=== PATIENT | female | born 1985 | race Caucasian/White ===

== ENCOUNTER 2018-03-17 14:17 | Emergency (ER) | payer OTHER ==
[2018-03-17] MEDS: ONDANSETRON 4 MG ORAL DISINTEGRATING TAB (Q0162 PER 1MG) PO (14:42)
[2018-03-17] MEDS: CYCLOBENZAPRINE 10 MG TAB PO (16:06)
[2018-03-17] MEDS: IBUPROFEN 600 MG TAB PO (16:06)
== END 2018-03-17 16:13 | disposition home or self-care (01) ==
LOC: M ED 14:17
DX: S16.1XXA Strain of muscle, fascia and tendon at neck level, initial encounter (principal); M25.511 Pain in right shoulder; F07.81 Postconcussional syndrome; W10.8XXA Fall (on) (from) other stairs and steps, initial encounter; Y92.098 Other place in other non-institutional residence as the place of occurrence of the external cause; E28.2 Polycystic ovarian syndrome; Z88.1 Allergy status to other antibiotic agents
CPT/HCPCS: Q0162

== ENCOUNTER 2018-05-18 06:46 | Day surgery (SDC) | payer OTHER ==
[~2018-05-18] VITALS: Ht 152.4 cm; Wt 67.1 kg
[~2018-05-18 06:46] MED LIST: /ONDA4TA PO; ACETAMINOPHEN 325 MG TAB PO PRN; AMITRIPTYLINE PO; CYCL10TA PO; HYDROXYZINE; IBUP-1022 PO; LIDOCAINE 2% W/EPIN INJ 20ML **PRES FREE As Ordered ONE; MIRALAX PO; NORCOTAB PO; PHENERGAN PO; TETRACAINE 0.5% OPHTH SOLN 4ML As Ordered ONE; TOBRADEX OPHTH OINT 3.5 GM As Ordered ONE
[2018-05-18] MEDS ORDERED: LIDOCAINE 3.5 % 1ML OPHTH TOPICAL GEL OU ONE (07:00)
[2018-05-18 07:09] LABS: URINE PREG TEST NEGATIVE (NEGATIVE)
[2018-05-18] MEDS ORDERED: PROPOFOL 200 MG/20 ML VIAL As Ordered ONE (07:17)
[2018-05-18] MEDS ORDERED: MIDAZOLAM INJ 2 MG/2 ML VIAL (J2250) As Ordered ONE (07:17)
[2018-05-18] MEDS ORDERED: fentaNYL 100 MCG/2 ML INJECTION (J3010) As Ordered ONE (07:17)
[2018-05-18] MEDS ORDERED: KETAMINE HCL 200 MG/20 ML VIAL As Ordered ONE (07:23)
[2018-05-18] MEDS ORDERED: LR 1,000 ML IV ONE (07:45)
[2018-05-18] MEDS ORDERED: POVIDONE-IODINE 5% OPHTH PREP SOL 30ML As Ordered ONE (07:54)
[2018-05-18 08:25] VITALS: BP 132/72
[2018-05-18] MEDS ORDERED: ACETAMINOPHEN 325 MG TAB As Ordered ONE (09:14)
[2018-05-18] MEDS ORDERED: TRIMETHOBENZAMIDE 300 MG CAP PO PRN (09:30)
--- NOTE | 2018-05-18 14:41 | RO ---
DATE OF PROCEDURE: 05/18/2018 PREOPERATIVE DIAGNOSIS: Ptosis left upper lid. POSTOPERATIVE DIAGNOSIS: Ptosis left upper lid. PROCEDURE: Ptosis repair left upper lid. SURGEON: Galileo Thacker MD HIGH CLIMBER: None. ANESTHESIA: COMPLICATIONS: None. PROCEDURE IN DETAIL: Patient was brought to the operating room, laid in supine position. The eye was prepped and draped in a sterile fashion for ophthalmic surgery , following which the left upper lid was infiltrated using 2% lidocaine with 1:100,000 epinephrine. Electrocautery was then used to excise the skin which was premarked with a sterile marker over the left upper lid. After the skin was removed, deeper dissections were carried out to isolate the detached levator aponeurosis. This levator aponeurosis was found to be very weak, but was reattached using #6-0 nylon sutures. Position of the lid was noted to be excellent. The skin was then closed using #6-0 nylon sutures. Hemostasis was obtained as necessary using electrocautery. Right after the surgery, ice packs were applied, antibiotic ointment was placed, and the patient went to the recovery room in stable condition.
== END 2018-05-18 09:42 | disposition home or self-care (01) ==
LOC: M SDC 06:46
PROVIDERS: ATTEND Ophthalmology
DX: H02.402 Unspecified ptosis of left eyelid (principal); Z88.1 Allergy status to other antibiotic agents; E28.2 Polycystic ovarian syndrome; F41.9 Anxiety disorder, unspecified
CPT/HCPCS: 15823; 67904; 84703; 88302; J2250; J3010

== ENCOUNTER 2018-09-10 17:48 | Emergency (ER) | payer OTHER ==
[~2018-09-10] VITALS: Ht 152.4 cm; Wt 73.2 kg
[~2018-09-10 17:48] MED LIST changes: -/ONDA4TA PO; -ACETAMINOPHEN 325 MG TAB PO PRN; +HYDR-3715 PO; -LIDOCAINE 2% W/EPIN INJ 20ML **PRES FREE As Ordered ONE; -NORCOTAB PO; +ONDA-1 PO; -TETRACAINE 0.5% OPHTH SOLN 4ML As Ordered ONE; -TOBRADEX OPHTH OINT 3.5 GM As Ordered ONE
[2018-09-10] MEDS ORDERED: IBUPROFEN 600 MG TAB PO ONE (19:45)
[2018-09-10] MEDS ORDERED: ONDANSETRON 4MG/2ML VIAL (J2405) IV ONE (19:45)
[2018-09-10] MEDS ORDERED: NS 1,000 ML IV ONE (19:45)
[2018-09-10 20:30] LABS: BASO % 0.4 % (0.0-1.0); EOS # 0.1 10^3/uL (0.0-0.50); EOS % 1.2 % (0.0-3.0); HEMOGLOBIN 13.1 g/dl (12.0-15.5); LYMPH # 1.4 10^3/uL (1.5-4.5); LYMPH % 27.4 % (24.0-44.0); MEAN CORPUSCULAR HEMOGLOBIN 31.6 pg (27.0-33.0); MEAN CORPUSCULAR HGB CONC 33.6 g/dl (32.0-36.5); MONO # 0.5 10^3/uL (0.0-0.8); MONO % 8.7 % (0.0-5.0); NEUTROPHILS # 3.2 10^3/uL (1.8-7.7); NEUTROPHILS % 62.1 % (36.0-66.0); PLATELET COUNT, AUTOMATED 193 10^3/uL (150-450); RED BLOOD COUNT 4.15 10^6/uL (4.00-5.40); WHITE BLOOD COUNT 5.2 10^3/uL (4.0-10.0)
[2018-09-10 21:04] LABS: BLOOD UREA NITROGEN 4 MG/DL (7-18); CALCIUM LEVEL 8.2 MG/DL (8.5-10.1); CARBON DIOXIDE LEVEL 23 MEQ/L (21-32); CHLORIDE LEVEL 112 MEQ/L (98-107); CREATININE FOR GFR 0.57 MG/DL (0.55-1.30); GLOMERULAR FILTRATION RATE > 60.0 (>60); GLUCOSE, FASTING 98 MG/DL (70-100); POTASSIUM SERUM 4.7 MEQ/L (3.5-5.1); SODIUM LEVEL 142 MEQ/L (136-145)
[2018-09-10] MEDS ORDERED: ONDA4TAB6 PO (22:10)
[2018-09-11 00:12] VITALS: BP 118/73
== END 2018-09-11 00:30 | disposition home or self-care (01) ==
LOC: M ED 17:48
DX: H59.89 Other postprocedural complications and disorders of eye and adnexa, not elsewhere classified (principal); R11.2 Nausea with vomiting, unspecified; R51 Headache; R53.81 Other malaise; R50.9 Fever, unspecified; Z88.5 Allergy status to narcotic agent; Z88.1 Allergy status to other antibiotic agents
CPT/HCPCS: 36415; 80048; 81001; 85025; 96374; 99284; J2405

== ENCOUNTER 2018-11-05 23:22 | Emergency (ER) | payer OTHER, SELFPAY ==
[~2018-11-05] VITALS: Ht 152.4 cm; Wt 74.5 kg
[2018-11-05 23:22] VITALS: BP 130/82
[~2018-11-05 23:22] MED LIST changes: +ONDA4TAB6 PO
== END 2018-11-06 02:44 | disposition left against medical advice (07) ==
LOC: M ED 23:22
DX: Z53.29 Procedure and treatment not carried out because of patient's decision for other reasons (principal)

== ENCOUNTER → 2019-03-10 | Outpatient (REF) | payer OTHER | LOC: M SFHCLERA 18:54 | PROVIDERS: ATTEND Nurse Practitioner Family | DX: R50.9 Fever, unspecified (principal) ==

== ENCOUNTER → 2019-03-10 | Outpatient (CLI) | payer OTHER ==
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
== END ==
LOC: M LRY 18:06
PROVIDERS: ATTEND Nurse Practitioner Family
DX: R05 Cough (principal)

== ENCOUNTER 2019-10-04 12:42 | Emergency (ER) | payer OTHER ==
[~2019-10-04] VITALS: Ht 152.4 cm; Wt 71.8 kg
[~2019-10-04 12:42] MED LIST changes: +CYCL-707 PO; -CYCL10TA PO
[2019-10-04] MEDS ORDERED: ibuprofen 400 (12:48)
[2019-10-04] MEDS ORDERED: MIDOL (12:48)
[2019-10-04 13:40] LABS: BASO % 0.3 % (0.0-1.0); EOS # 0.1 10^3/uL (0.0-0.5); HEMATOCRIT 37.7 % (36.0-47.0); HEMOGLOBIN 13.1 g/dl (12.0-15.5); LYMPH # 2.4 10^3/uL (1.5-5.0); LYMPH % 38.3 % (24.0-44.0); MEAN CORPUSCULAR HGB CONC 34.7 g/dl (32.0-36.5); MEAN CORPUSCULAR VOLUME 89.1 fl (80.0-96.0); MONO # 0.5 10^3/uL (0.0-0.8); MONO % 8.1 % (0.0-5.0); NEUTROPHILS # 3.2 10^3/uL (1.5-8.5); NEUTROPHILS % 52.1 % (36.0-66.0); PLATELET COUNT, AUTOMATED 240 10^3/uL (150-450); RED BLOOD COUNT 4.23 10^6/uL (4.00-5.40); WHITE BLOOD COUNT 6.2 10^3/uL (4.0-10.0)
[2019-10-04 14:04] LABS: ALBUMIN 3.9 GM/DL (3.2-5.2); ALT/SGPT 49 U/L (12-78); BILIRUBIN,DIRECT < 0.1 MG/DL (0.0-0.2); BILIRUBIN,TOTAL 0.4 MG/DL (0.2-1.0); BLOOD UREA NITROGEN 8 MG/DL (7-18); CALCIUM LEVEL 9.1 MG/DL (8.5-10.1); CARBON DIOXIDE LEVEL 23 MEQ/L (21-32); CHLORIDE LEVEL 108 MEQ/L (98-107); CREATININE FOR GFR 0.56 MG/DL (0.55-1.30); GLOMERULAR FILTRATION RATE > 60.0 (>60); GLUCOSE, FASTING 100 MG/DL (70-100); LIPASE 98 U/L (73-393); POTASSIUM SERUM 3.8 MEQ/L (3.5-5.1); SODIUM LEVEL 139 MEQ/L (136-145); TOTAL PROTEIN 7.2 GM/DL (6.4-8.2)
[2019-10-04 14:15] LABS: HCG, SERUM QUALITATIVE NEGATIVE (NEGATIVE)
[2019-10-04 15:59] VITALS: BP 135/85
--- NOTE | 2019-10-04 16:39 | REP ---
Clinical: Abnormal uterine bleeding. Technique: Transabdominal pelvic ultrasound followed by transvaginal examination for better evaluation of the endometrium and adnexa with color Doppler evaluation of the ovaries. Findings: Bladder is partially collapsed. Heterogeneous anteverted uterus measures 9.3 x 5.1 x 5.5 cm with findings to suggest adenomyosis. The endometrial complex is thickened to 31 mm and includes 9x8x6 mm hyperechoic focus suggesting polyp along with hemorrhagic debris. The bilateral ovaries are normal in vascularity without torsion. Right ovary measures 3.5 x 2.4 x 2.8 cm (RI 0.56) and includes 1.4 cm presumed physiologic cyst / dominant follicle. Left ovary measures 3.2 x 1.9 x 2.9 cm (RI 0.70). No pelvic fluid or adnexal mass lesion. Impression: 1. Heterogeneous thickened endometrium suggesting hemorrhagic debris and suspected 9 mm polyp. 2. Heterogeneous uterus suggesting adenomyosis. Electronically Signed by Aden Horan MD 10/04/2019 04:30 P
[2019-10-04] MEDS ORDERED: FLAG500T PO (17:15)
[2019-10-04 17:52] LABS: CHLAMYDIA DNA AMPLIFICATION NEGATIVE (NEGATIVE); GC DNA AMPLIFICATION NEGATIVE (NEGATIVE)
[2019-10-05 10:09] LABS: CA 125 100.3 U/ML (<30.2)
== END 2019-10-04 17:26 | disposition home or self-care (01) ==
LOC: M ED 12:42
DX: N93.9 Abnormal uterine and vaginal bleeding, unspecified (principal); N85.00 Endometrial hyperplasia, unspecified

== ENCOUNTER 2019-10-07 15:20 | Emergency (ER) | payer OTHER ==
[~2019-10-07] VITALS: Ht 152.4 cm; Wt 69.7 kg
[~2019-10-07 15:20] MED LIST changes: +FLAG500T PO; +MIDOL; +ibuprofen 400
[2019-10-07] MEDS ORDERED: ALEV1TAB PO (15:27)
[2019-10-07 16:48] LABS: BASO % 0.6 % (0.0-1.0); EOS % 0.6 % (0.0-3.0); HEMATOCRIT 33.6 % (36.0-47.0); HEMOGLOBIN 11.8 g/dl (12.0-15.5); LYMPH # 2.1 10^3/uL (1.5-5.0); LYMPH % 43.3 % (24.0-44.0); MEAN CORPUSCULAR HEMOGLOBIN 31.1 pg (27.0-33.0); MEAN CORPUSCULAR HGB CONC 35.1 g/dl (32.0-36.5); MEAN CORPUSCULAR VOLUME 88.7 fl (80.0-96.0); MONO # 0.4 10^3/uL (0.0-0.8); MONO % 7.1 % (0.0-5.0); NEUTROPHILS # 2.4 10^3/uL (1.5-8.5); NEUTROPHILS % 48.4 % (36.0-66.0); PLATELET COUNT, AUTOMATED 235 10^3/uL (150-450); RED BLOOD COUNT 3.79 10^6/uL (4.00-5.40); WHITE BLOOD COUNT 4.9 10^3/uL (4.0-10.0)
[2019-10-07] MEDS ORDERED: DICL50TA2 PO (17:14)
[2019-10-07 17:44] VITALS: BP 126/85
== END 2019-10-07 17:58 | disposition home or self-care (01) ==
LOC: M ED 15:20
DX: N93.8 Other specified abnormal uterine and vaginal bleeding (principal); N94.6 Dysmenorrhea, unspecified; E28.2 Polycystic ovarian syndrome; K21.9 Gastro-esophageal reflux disease without esophagitis; F41.9 Anxiety disorder, unspecified; Z88.5 Allergy status to narcotic agent; Z88.8 Allergy status to other drugs, medicaments and biological substances

== ENCOUNTER 2019-11-17 07:25 | Day surgery (SDC) | payer OTHER ==
[~2019-11-17] VITALS: Ht 154.9 cm; Wt 68.0 kg
[~2019-11-17 07:25] MED LIST changes: +ALEV1TAB PO; +DICL50TA2 PO; +HYDR-3363 PO; +LIDOCAINE 2% 100MG/5ML SDV (FOR ANES.) As Ordered ONE; +MIDAZOLAM INJ 2MG/2ML VIAL (J2250 PER 1MG) As Ordered ONE; +ONDANSETRON 4MG/2ML VIAL As Ordered ONE; +SILVER NITRATE APPLICATOR As Ordered ONE; +dexameTHASONE 4 MG/ML 1ML VIAL (J1100 PER 1MG) As Ordered ONE; +fentaNYL 100 MCG/2 ML INJECTION (J3010) As Ordered ONE; +propofoL 200 MG/20 ML VIAL As Ordered ONE
[2019-11-17] MEDS ORDERED: ROCURONIUM BROMIDE 50 MG/5 ML VIAL As Ordered ONE (07:42)
[2019-11-17] MEDS ORDERED: METOCLOPRAMIDE INJ 10MG/2ML VIAL (J2765 PER 1) As Ordered ONE (08:04)
[2019-11-17] MEDS ORDERED: ACETAMINOPHEN 1000MG 100ML IV BTL (OFIRMEV) (J0131 PER 10MG) As Ordered ONE (08:04)
[2019-11-17] MEDS ORDERED: PERCOCET 5MG/325MG TAB As Ordered ONE ×2 (09:30→09:51)
[2019-11-17] MEDS ORDERED: KETOROLAC 60MG 2ML VIAL As Ordered ONE (09:43)
[2019-11-17] MEDS ORDERED: SUGAMMADEX SODIUM 500 MG/5 ML VIAL (BRIDION) As Ordered ONE (09:43)
[2020-01-06 20:33] LABS: HEMATOCRIT 35.6 % (36.0-47.0); HEMOGLOBIN 11.9 g/dl (12.0-15.5); MEAN CORPUSCULAR HEMOGLOBIN 30.7 pg (27.0-33.0); MEAN CORPUSCULAR HGB CONC 33.4 g/dl (32.0-36.5); MEAN CORPUSCULAR VOLUME 91.8 fl (80.0-96.0); PLATELET COUNT, AUTOMATED 219 10^3/uL (150-450); RED BLOOD COUNT 3.88 10^6/uL (4.00-5.40); WHITE BLOOD COUNT 4.3 10^3/uL (4.0-10.0)
--- NOTE | 2020-01-27 13:20 | RO ---
DATE OF PROCEDURE: November 17, 2019 PREOPERATIVE DIAGNOSES: Abnormal uterine bleeding. Possible endometrial mass/polyp. POSTOPERATIVE DIAGNOSES: Abnormal uterine bleeding. Possible endometrial mass/polyp. PROCEDURE PERFORMED: Hysteroscopy dilatation and curettage. MyoSure morcellation of endometrial mass/tissue. SURGEON: Stevie Patel DO TRACKMOBILE OPERATOR: None. ANESTHESIA TYPE: General via LMA. SPECIMENS SENT TO PATHOLOGY: Endometrial mass/polyp (morcellated). Endometrial curettings. ESTIMATED BLOOD LOSS: 20 mL. FLUIDS REPLACED: 1 liter lactated Ringer's. DRAINS: In and out urinary catheter. URINE OUTPUT: 300 mL. COMPLICATIONS: None. FLUID DEFICIT: Normal saline 500 mL. PREOPERATIVE ANTIBIOTICS: None indicated. INTRAOPERATIVE FINDINGS: Approximately a 9-10mm endometrial polypoid mass in the background of abundant endometrium. INDICATIONS: The patient is a 34-year-old who has been complaining of chronic abnormal uterine bleeding. A pelvic ultrasound revealed evidence of a possible endometrial polyp. The decision was made to proceed to the operating room for a hysteroscopy D&C and MyoSure morcellation of this endometrial mass. PROCEDURE: The patient was counseled and consented on the risks, benefits, indications, and alternatives of the procedure. Informed consent was obtained. She was taken to the operating room with an IV running and placed on the operating room table in the dorsal supine position. General anesthesia was administered and the airway secured without any difficulty. She was then placed in the high lithotomy position. She was prepped and draped in normal sterile fashion. A timeout was performed per protocol. The bladder was drained with a sterile in and out catheter. A sterile speculum was placed with good visualization of the cervix. The cervix was grasped with a single-toothed tenaculum and downward traction was applied. The cervix was then sequentially dilated with Kee dilators up to a #18. The hysteroscope was placed transcervically into the intrauterine cavity with the findings noted above. The MyoSure device was used to morcellate the abnormal endometrial tissue/mass that was visualized. Once this was removed, the cavity was cleared and free of any obstruction or mass. The MyoSure device was removed and the hysteroscope was removed. The curette was placed transcervically into the intrauterine cavity and any residual endometrial decidual tissue was curetted until there was gritty texture noted throughout the cavity, indicating no more decidualized tissue. The bleeding from the os after removal of the curette was minimal. The tenaculum was removed. The tenaculum sites were cauterized with silver nitrate. All instruments were removed from the vagina. Sponge, needle, and instrument counts were correct per protocol. The patient tolerated the entire procedure well. She was transferred to the PACU in good and stable condition. CONG
== END 2019-11-17 11:02 | disposition home or self-care (01) ==
LOC: M SDC 07:25
PROVIDERS: ATTEND Obstetrics & Gynecology
DX: N92.0 Excessive and frequent menstruation with regular cycle (principal); N84.0 Polyp of corpus uteri; E28.2 Polycystic ovarian syndrome; Z88.5 Allergy status to narcotic agent; Z88.1 Allergy status to other antibiotic agents; K58.8 Other irritable bowel syndrome; F41.9 Anxiety disorder, unspecified; Z79.899 Other long term (current) drug therapy
CPT/HCPCS: 58558; 85027; 86850; 86900; 86901; 88305; J0131; J1100; J1885; J2250; J2405; J2765; J3010

== ENCOUNTER 2020-03-09 18:55 | Emergency (ER) | payer OTHER ==
[~2020-03-09] VITALS: Ht 152.4 cm; Wt 75.6 kg
[~2020-03-09 18:55] MED LIST changes: -LIDOCAINE 2% 100MG/5ML SDV (FOR ANES.) As Ordered ONE; -MIDAZOLAM INJ 2MG/2ML VIAL (J2250 PER 1MG) As Ordered ONE; -ONDANSETRON 4MG/2ML VIAL As Ordered ONE; -SILVER NITRATE APPLICATOR As Ordered ONE; -dexameTHASONE 4 MG/ML 1ML VIAL (J1100 PER 1MG) As Ordered ONE; -fentaNYL 100 MCG/2 ML INJECTION (J3010) As Ordered ONE; -propofoL 200 MG/20 ML VIAL As Ordered ONE
[2020-03-09 18:56] VITALS: BP 127/96
== END 2020-03-09 21:08 | disposition left against medical advice (07) ==
LOC: M ED 18:55
DX: Z53.21 Procedure and treatment not carried out due to patient leaving prior to being seen by health care provider (principal)

== ENCOUNTER 2020-03-11 12:17 | Emergency (ER) | payer OTHER ==
[~2020-03-11] VITALS: Ht 152.4 cm; Wt 74.2 kg
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
[2020-03-11] MEDS ORDERED: ACETAMINOPHEN TAB 650MG DOSE (2X325MG) PO ONE (13:15)
[2020-03-11 13:35] LABS: BASO % 0.8 % (0.0-1.0); EOS # 0.1 10^3/uL (0.0-0.5); EOS % 1.2 % (0.0-3.0); HEMATOCRIT 45.1 % (36.0-47.0); HEMOGLOBIN 14.8 g/dl (12.0-15.5); LYMPH # 2.4 10^3/uL (1.5-5.0); LYMPH % 46.7 % (24.0-44.0); MEAN CORPUSCULAR HEMOGLOBIN 29.2 pg (27.0-33.0); MEAN CORPUSCULAR HGB CONC 32.8 g/dl (32.0-36.5); MEAN CORPUSCULAR VOLUME 89.1 fl (80.0-96.0); MONO # 0.4 10^3/uL (0.0-0.8); MONO % 8.1 % (0.0-5.0); NEUTROPHILS # 2.2 10^3/uL (1.5-8.5); PLATELET COUNT, AUTOMATED 237 10^3/uL (150-450); RED BLOOD COUNT 5.06 10^6/uL (4.00-5.40); WHITE BLOOD COUNT 5.2 10^3/uL (4.0-10.0)
[2020-03-11 14:04] LABS: BLOOD UREA NITROGEN 12 MG/DL (7-18); CALCIUM LEVEL 9.1 MG/DL (8.5-10.1); CARBON DIOXIDE LEVEL 29 MEQ/L (21-32); CHLORIDE LEVEL 107 MEQ/L (98-107); CREATININE FOR GFR 0.68 MG/DL (0.55-1.30); GLOMERULAR FILTRATION RATE > 60.0 (>60); GLUCOSE, FASTING 81 MG/DL (70-100); POTASSIUM SERUM 4.1 MEQ/L (3.5-5.1); SODIUM LEVEL 140 MEQ/L (136-145)
[2020-03-11] MEDS ORDERED: ISOVUE-370 76% 100ML VIAL As Ordered ONE (14:22)
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
[2020-03-11 15:48] VITALS: BP 134/84
== END 2020-03-11 15:49 | disposition home or self-care (01) ==
LOC: M ED 12:17
DX: Z04.1 Encounter for examination and observation following transport accident (principal); S20.211A Contusion of right front wall of thorax, initial encounter; S06.0X0A Concussion without loss of consciousness, initial encounter; V40.5XXA Car driver injured in collision with pedestrian or animal in traffic accident, initial encounter; Y92.410 Unspecified street and highway as the place of occurrence of the external cause; Y93.89 Activity, other specified; Y99.8 Other external cause status; M54.5 Low back pain; Z88.1 Allergy status to other antibiotic agents; Z88.5 Allergy status to narcotic agent
CPT/HCPCS: 70450; 70486; 71260; 72125; 72128; 72131; 74177; 80048; 84702; 85025; 99283; Q9967

== ENCOUNTER → 2020-05-05 | Outpatient (CLI) | payer SELFPAY | LOC: M LABSMTC 13:18 | PROVIDERS: ATTEND Pediatrics | DX: Z20.822 Contact with and (suspected) exposure to COVID-19 (principal) ==